=== PATIENT | female | born 1960 | race Caucasian/White ===

== ENCOUNTER 2020-06-09 17:41 | Emergency (ER) | payer MEDICAID ==
[~2020-06-09] VITALS: Ht 165.1 cm; Wt 68.0 kg
[2020-06-09 18:13] VITALS: BP 153/83
--- NOTE | 2020-06-09 18:30 | NUR ---
C/O LLQ ABD PAIN STARTING TODAY. PT STATES IT BEGAN IN THE MORNING AND HAS ONLY GOTTEN WORSE THROUGHOUT THE DAY, AND IT MADE WORSE WITH MOVEMENT. PT DENIES DYSURIA. PMH: DENIES
[2020-06-09] MEDS ORDERED: KETOROLAC 30 MG/ML VIAL IM ONE (18:35)
--- NOTE | 2020-06-09 19:20 | NUR ---
REPORT GIVEN TO KRISTIAN SERRATO. TX OF CARE AT THIS TIME.
--- NOTE | 2020-06-09 19:21 | NUR ---
RECEIVED REPORT FROM JEAN CLAUDE TOWNSEND FOR CONTINUITY OF CARE
[2020-06-09 19:25] LABS: BASOPHILS # (AUTO) 0.1 K/uL (0.00-0.22); BASOPHILS % (AUTO) 0.8 % (0.0-2.0); HEMATOCRIT 41.9 % (36-48); LYMPHOCYTES # (AUTO) 1.3 K/uL (2.5-16.5); LYMPHOCYTES % (AUTO) 13.2 % (20.5-51.1); MEAN CORPUSCULAR HEMOGLOBIN 28 pg (27-31); MEAN CORPUSCULAR HGB CONC 34 g/dL (33-37); MEAN CORPUSCULAR VOLUME 84.5 fL (80-94); MONOCYTES # (AUTO) 0.5 K/uL (0.8-1.0); MONOCYTES % (AUTO) 4.7 % (1.7-9.3); NEUTROPHILS # (AUTO) 7.8 K/uL (1.8-7.7); NEUTROPHILS % (AUTO) 81.3 % (42.2-75.2); PLATELET COUNT (AUTO) 197 K/uL (140-450); RED BLOOD CELL COUNT(AUTO) 4.96 MIL/uL (4.20-5.40); RED CELL DISTRIBUTION WIDTH 13.8 % (11.6-13.7); WHITE BLOOD COUNT (AUTO) 9.6 K/uL (4.8-10.8)
[2020-06-09 19:46] LABS: ALBUMIN 3.9 g/dL (3.4-5.0); ANION GAP 15.6 (8-16); CARBON DIOXIDE 27.2 mmol/L (21-32); CREATININE 0.8 mg/dL (0.6-1.3); POTASSIUM 3.8 mmol/L (3.5-5.1); TOTAL BILIRUBIN 0.3 mg/dL (0.0-1.0)
--- NOTE | 2020-06-09 20:01 | NUR ---
PT AMBULATED TO RESTROOM STEADY GAIT
[2020-06-09 20:52] LABS: APPEARANCE,URINE CLEAR (CLEAR); BILIRUBIN,URINE NEGATIVE (NEGATIVE); BLOOD, URINE 2+ (NEGATIVE); COLOR,URINE YELLOW (YELLOW); LEUKOCYTE ESTERASE ,URINE 1+ (NEGATIVE); NITRITE, URINE NEGATIVE (NEGATIVE); UGLUCOSE NEGATIVE (NEGATIVE)
[2020-06-09 21:35] VITALS: BP 148/71
--- NOTE | 2020-06-09 21:35 | NUR ---
Patient discharged with v/s stable. Written and verbal after care instructions given and explained. Patient alert, oriented and verbalized understanding of instructions. Ambulatory with steady gait. All questions addressed prior to discharge. ID band removed. Patient advised to follow up with PMD. Rx of FLOMAX, NORCO, ZOFRAN given. Patient educated on indication of medication including possible reaction and side effects. Opportunity to ask questions provided and answered.
== END 2020-06-09 21:35 | disposition home or self-care (01) ==
LOC: MED 17:41
DX: N20.0 Calculus of kidney (principal); R31.9 Hematuria, unspecified
CPT/HCPCS: 36415; 74176; 80053; 81001; 85025; 87086; 96372; 99284; J1885; 81002